=== PATIENT | female | born 1970 | race Two or more races ===

== ENCOUNTER 2016-09-27 08:51 | Day surgery (SDC) | payer OTHER ==
[~2016-09-27] VITALS: Ht 162.6 cm; Wt 84.0 kg
[2016-09-27] VITALS (16 sets, daily range): BP systolic 107–149; BP diastolic 59–82; PULSE 80–107; RESP 10–20; Ht 162.6 cm; Wt 84.0 kg
[~2016-09-27 08:51] MED LIST: DIPHENHYDRAMINE 50 MG INJ IV PRN; FENTAnyl 50 MCG/ML VIAL IV PRN; HYDROmorphONE (0.2 MG/ML) 10ML SYG IV PRN; KETOROLAC 30 MG INJ IV ONE; MEPERIDINE 25 MG INJ IV PRN; ONDANSETRON 4 MG INJ IV PRN; OXYCODONE/ACETAMINOPHEN (5/325) TAB PO PRN; PROCHLORPERAZINE 10 MG INJ IV PRN
[2016-09-27 11:09] LABS: ADD SCAN DIFF NO
[2016-09-27 11:11] LABS: BASOPHILS % 0.3 % (0.0-2.0); EOSINOPHILS # 0.1 10^3/ul (0.0-0.5); EOSINOPHILS % 0.9 % (0.0-7.0); HEMATOCRIT 37.4 % (37.0-47.0); LYMPHOCYTES # 3.2 10^3/ul (0.8-2.9); LYMPHOCYTES % 34.3 % (15.0-51.0); MEAN CORPUSCULAR HEMOGLOBIN 26.3 pg (29.0-33.0); MEAN CORPUSCULAR HGB CONC 32.1 g/dl (32.0-37.0); MEAN CORPUSCULAR VOLUME 81.8 fl (82.0-101.0); MONOCYTE # 0.6 10^3/ul (0.3-0.9); MONOCYTES % 6.9 % (0.0-11.0); NEUTROPHIL # 5.3 10^3/ul (1.6-7.5); NEUTROPHILS % 57.2 % (39.0-77.0); PLATELET COUNT 385 10^3/UL (140-415); RED BLOOD COUNT 4.57 10^6/ul (4.20-5.40); RED CELL DISTRIBUTION WIDTH 16.4 % (11.5-14.5); WHITE BLOOD COUNT 9.3 10^3/ul (4.8-10.8)
[2016-09-27 11:31] LABS: ALBUMIN 4.9 g/dl (3.3-4.9)
[2016-09-27 11:33] LABS: INR 0.93; PARTIAL THROMBOPLASTIN TIME 27.1 Sec (25.0-35.0); PROTIME 12.5 Sec (12.2-14.2)
[2016-09-27 11:34] LABS: ALBUMIN/GLOBULIN RATIO 1.28; BILIRUBIN,INDIRECT 0.8 mg/dl (0-1.1); BILIRUBIN,TOTAL 0.8 mg/dl (0.2-1.3); CREATININE 0.56 mg/dl (0.44-1.00); POTASSIUM 3.9 mmol/L (3.5-5.1); TOTAL PROTEIN 8.7 g/dl (6.1-8.1)
[2016-09-27 11:35] LABS: CALCIUM 9.4 mg/dl (8.4-10.2)
[2016-09-27] MEDS ORDERED: PROPOFOL 20 ML ONE (11:50)
[2016-09-27] MEDS ORDERED: MIDAZOLAM 1 MG/ML 2 ML INJ ONE (11:50)
[2016-09-27] MEDS ORDERED: LIDOCAINE 2% (SDV) 5 ML INJ ONE (11:50)
[2016-09-27] MEDS ORDERED: FENTAnyl 50 MCG/ML VIAL ONE ×2 (11:50→13:04)
--- NOTE | 2016-09-27 12:16 | PN ---
Date/Time of Note Date/Time of Note DATE: 09/27/16 TIME: 12:12 Assessment/Plan VTE Prophylaxis VTE Prophylaxis Intervention: SCD's Lines/Catheters IV Catheter Type (from Nrsg): Peripheral IV Subjective 24 Hr Interval Summary Free Text/Dictation Informed Consent Obtained. Risks and Benefits of proposed surgery discussed. Alternatives to proposed procedure and their risks and alternatives discussed. Potentials include but are not limited to bleeding, infection, injury to surrounding tissues, organs, nerves, and vessels were discussed. Remote risks such as possibility of , disfigurement, or permanent disability discussed with patient. Patient desires to proceed with the procedure. Exam/Review of Systems Vital Signs Vitals Vital Signs Date Time Temp Pulse Resp B/P Pulse Ox O2 Delivery O2 Flow Rate FiO2 09/27/16 10:58 98.3 107 20 134/81 99 Room Air Results Result Diagram: 09/27/16 1045 09/27/16 1045 Results 24 hrs Laboratory Tests Test 09/27/16 10:45 White Blood Count 9.3 Red Blood Count 4.57 Hemoglobin 12.0 Hematocrit 37.4 Mean Corpuscular Volume 81.8 L Mean Corpuscular Hemoglobin 26.3 L Mean Corpuscular Hemoglobin Concent 32.1 Red Cell Distribution Width 16.4 H Platelet Count 385 Mean Platelet Volume 9.0 Neutrophils % 57.2 Lymphocytes % 34.3 Monocytes % 6.9 Eosinophils % 0.9 Basophils % 0.3 Nucleated Red Blood Cells % 0.0 Neutrophils # 5.3 Lymphocytes # 3.2 H Monocytes # 0.6 Eosinophils # 0.1 Basophils # 0.0 Nucleated Red Blood Cells # 0.0 Prothrombin Time 12.5 Prothrombin Time Ratio 1.0 INR International Normalized Ratio 0.93 Activated Partial Thromboplast Time 27.1 Sodium Level 140 Potassium Level 3.9 Chloride Level 103 Carbon Dioxide Level 22 Anion Gap 19 H Blood Urea Nitrogen 13 Creatinine 0.56 Glucose Level 93 Calcium Level 9.4 Total Bilirubin 0.8 Direct Bilirubin 0.00 Indirect Bilirubin 0.8 Aspartate Amino Transf (AST/SGOT) 29 Alanine Aminotransferase (ALT/SGPT) 36 Alkaline Phosphatase 92 Total Protein 8.7 H Albumin 4.9 Globulin 3.80 H Albumin/Globulin Ratio 1.28 Medications Medications Current Medications Cefazolin Sodium/ Dextrose 50 ml @ 100 mls/hr PRE-OP ONCE IVPB ; Start at 13:00; Stop 09/27/16 at 13:29 Sodium Chloride (NS) 1,000 ml @ 75 mls/hr [id number] ONCE IV ; Start 09/27/16 at 13:00; Stop 09/28/16 at 02:19 Sharonda ACKERMAN September 27, 2016 12:16
[2016-09-27] MEDS ORDERED: LIDOCAINE 2% (MDV) 20 ML INJ ONE (12:27)
[2016-09-27] MEDS ORDERED: BUPIVACAINE 0.5% (SDV) 30 ML INJ ONE (12:27)
[2016-09-27] MEDS ORDERED: BUPIVACAINE 0.25% (MPF) 10 ML 10 ML VIAL ONE (12:27)
[2016-09-27] MEDS ORDERED: CEFAZOLIN 1 GM INJ ONE (12:51)
[2016-09-27] MEDS ORDERED: METOCLOPRAMIDE 10 MG INJ ONE (12:51)
[2016-09-27] MEDS ORDERED: ONDANSETRON 4 MG INJ ONE (12:51)
[2016-09-27] MEDS ORDERED: CEFAZOLIN 2 GM/50 ML (PMX) 50 ML IVPB ONE (13:00)
[2016-09-27] MEDS ORDERED: SOD CHLORIDE 0.9% 1,000 ML IV ONE (13:00)
--- NOTE | 2016-09-27 13:21 | OPR ---
Date/Time of Note Date/Time of Note DATE: 09/27/16 TIME: 13:20 Operative Report Procedure Date: September 27, 2016 Preoperative Diagnosis enlarging right breast mass Postoperative Diagnosis same Operation Performed right needle localized breast mass excision under needle localization with 6 cm incision and 6 x 4 cm mass localized adjacent tissue transfer with the use of skin flaps 12 sq cm defect Surgeon: Sharonda ACKERMAN Specimens right breast mass Sharonda ACKERMAN September 27, 2016 13:21
--- NOTE | 2016-09-27 13:34 | OPR ---
DATE OF OPERATION: 09/27/2016 INDICATION: This is a 46-year-old female with an enlarging right breast mesh. The patient requests surgical excision of the mass. Risks, alternatives, benefits, and personnel were discussed with e patient prior to surgery. The patient expressed understanding and consents to the operation. PREOPERATIVE DIAGNOSIS: Enlarging right breast mass. POSTOPERATIVE DIAGNOSIS: Enlarging right breast mass. OPERATION PERFORMED: 1. Excision of right breast mass under needle localization with a 6 cm incision and 6 x 4 cm size m ass. 2. Localized adjacent tissue transfer with the use of skin flaps with a square defect of 12 sq cm. SURGEON: Nayan Obrien MD SPECIMEN: Right breast mass. COMPLICATIONS: None. ANESTHESIA: General. DESCRIPTION OF PROCEDURE: The patient was taken to the OR and prepped and draped in the usual steri le fashion. Surgical time out was performed. IV antibiotics were given. After reviewing mammograp hic imaging and needle localization, curvilinear incision was made over the superior right areola trent rder with a 15 blade. Dissection cautery was carried down to the mass with guidance of the needle. The needle and the mass were resected en bloc with cautery. There was good hemostasis due to tissu e defect. Localized adjacent tissue transfer with the use of skin flaps was performed. Multilevel closure with interrupted 3-0 Vicryl and running 4-0 Monocryl. Local anesthesia was injected. Dry d ressings were applied. Dictated By: NAYAN ROLAND/VIGNESH Conf#: [id number] DID#: [id number]
[2016-09-27] MEDS ORDERED: HYDROCODONE/APAP (5/325) TAB PO ONE (15:00)
== END 2016-09-27 16:15 | disposition home or self-care (01) ==
LOC: SDS 08:51
PROVIDERS: ATTEND Surgery
DX: N60.11 Diffuse cystic mastopathy of right breast (principal); D24.1 Benign neoplasm of right breast; J45.909 Unspecified asthma, uncomplicated
CPT/HCPCS: 19120; 80053; 85025; 85610; 85730; 88307; J0690; J1885; J2175; J2250; J2405; J2765; J3010; Z7512; Z7610